=== PATIENT | female | born 1965 ===

== ENCOUNTER 2020-06-27 13:16 | Outpatient (CLI) | payer OTHER ==
--- NOTE | 2020-06-27 15:46 | MRI ---
MRI BRAIN WITH AND WITHOUT CONTRAST: DATE: 06/27/2020 HISTORY: 55 year old female with ICD-10: "G 43.009, migraine without aura and without status migrainosus, not intractable" TECHNIQUE: Multiplanar, multisequence MRI of the brain obtained pre and post IV injection of gadolinium based co ntrast agent. FINDINGS: The ventricles are normal in size and configuration. There is no midline shift or any other evidence of mass effect. There is no extra-axial fluid collection. There is no intra-axial signal abnormality, abnormal enhancement, mass, recent hemorrhage, or restricted diffusion. IMPRESSION: Normal
== END 2020-06-27 13:17 | disposition home or self-care (01) ==
LOC: SCSMRI 13:16
PROVIDERS: ATTEND Nurse Practitioner Acute Care
DX: G43.009 Migraine without aura, not intractable, without status migrainosus (principal)
CPT/HCPCS: 70553